=== PATIENT | male | born 1995 | race Hispanic/Latino ===

== ENCOUNTER 2018-01-25 15:57 | Emergency (ER) | payer SELFPAY ==
--- NOTE | 2018-01-25 16:37 | ERPHSYRPT ---
- History of Present Illness Time Seen by Provider: 01/25/18 16:26 Source: patient, family Exam Limitations: no limitations Patient Subjective Stated Complaint: patient is from [place] up here with his father states he has history of sickle cell anemia and gallstones and is experiencing extreme nausea nd pain in his back and sides Triage Nursing Assessment: pt alert and orientedx3, able to ambulate by self, gait is steady, skin WNL, lung sounds clear, pupils perrla2, bowel sounds present x4. pusle sequal bialteral radius. no deformities or areas of injury noted on back Physician History: The patient is a 22-year-old male with sickle cell disease, traveling with his father who is an over the road welding equipment repairer from [place], complains of possible sickle cell crisis for episode for the last 4 days. He complains of low back pain and central chest pain. The pt has been vomiting for 4 days. 4 days ago they stopped while driving the truck in [place] and was seen in the emergency room. He was hydrated and given [place] 5 mg for the pain. He states it is not working. He would like more pain medicine. His father has a load for his truck tomorrow and that he wants to go home to [place]. His past medical history is significant for sickle cell disease and gallstones. His last sickle cell episode was 4 months ago. Timing/Duration: day(s) (4) Severity: severe Modifying Factors: Improves With: ibuprofen, other (norco) Associated Symptoms: vomiting, chest pain Allergies/Adverse Reactions: No Known Drug Allergies Allergy (Verified 01/25/18 16:06) Hx Tetanus, Diphtheria Vaccination/Date Given: Yes Hx Influenza Vaccination/Date Given: Yes Hx Pneumococcal Vaccination/Date Given: No Immunizations Up to Date: Yes - Review of Systems Constitutional: No Fever, No Chills Eyes: No Symptoms Ears, Nose, & Throat: No Symptoms Respiratory: No Cough, No Dyspnea Cardiac: Chest Pain, No Edema, No Syncope Abdominal/Gastrointestinal: Nausea, Vomiting Genitourinary Symptoms: No Dysuria Musculoskeletal: Back Pain Skin: No Rash Neurological: No Dizziness, No Focal Weakness, No Sensory Changes Psychological: No Symptoms Endocrine: No Symptoms Hematologic/Lymphatic: No Symptoms Immunological/Allergic: No Symptoms All Other Systems: Reviewed and Negative - Past Medical History Pertinent Past Medical History: Yes Other Medical History: sickle cell SS, gall stones - Past Surgical History Past Surgical History: Yes - Social History Smoking Status: Current every day smoker Drug Use: none - Nursing Vital Signs Nursing Vital Signs: Initial Vital Signs Temperature 98.7 F 01/25/18 15:59 Pulse Rate 106 H 01/25/18 15:59 Respiratory Rate 18 01/25/18 15:59 Blood Pressure 143/73 01/25/18 15:59 O2 Sat by Pulse Oximetry 98 01/25/18 15:59 Pain Scale Pain Intensity [] 7 Pain Intensity 2 - Physical Exam General Appearance: moderate distress, thin Eye Exam: PERRL/EOMI, eyes nml inspection Ears, Nose, Throat Exam: normal ENT inspection, TMs normal, pharynx normal, moist mucous membranes Neck Exam: normal inspection, non-tender, supple, full range of motion Respiratory Exam: normal breath sounds, chest tenderness, lungs clear, No respiratory distress Cardiovascular Exam: regular rate/rhythm, normal peripheral pulses, murmur Gastrointestinal/Abdomen Exam: soft, normal bowel sounds, No tenderness, No mass Rectal Exam: not done Back Exam: normal inspection, normal range of motion, No CVA tenderness, No vertebral tenderness Extremity Exam: normal inspection, normal range of motion, pelvis stable Neurologic Exam: alert, oriented x 3, cooperative, normal mood/affect, nml cerebellar function, nml station & gait, sensation nml, No motor deficits Skin Exam: normal color, warm, dry, No rash Lymphatic Exam: No adenopathy SpO2 Interpretation: normal SpO2: 98 Oxygen Delivery: Room Air - Course EKG Interpreted by Me: RATE, Sinus Rhythm, NORMAL AXIS, NORMAL INTERVALS, NORMAL QRS, NORMAL ST-T - Radiology Exams Chest X-ray Interpretation: Interpreted by me, Negative - CT Exams Abdomen/Pelvis CT Interpretation: Tele-radiologist Report, Other (multiple gallstones; calcified spleen per Dr Ellison.) Ordered Tests: Active Orders 24 hr Category Date Time Status Clean Catch Urine Specimen STAT Care 01/25/18 16:42 Active EKG-ER Only STAT Care 01/25/18 16:42 Active IV Insertion STAT Care 01/25/18 16:42 Active ABDOMEN AND PELVIS W/0 CONTRAS [CT] Stat Exams 01/25/18 18:01 Taken CHEST 2 VIEWS (PA AND LAT) Stat Exams 01/25/18 16:42 Taken AMYLASE Stat Lab 01/25/18 17:21 Completed CBC W DIFF Stat Lab 01/25/18 17:21 Completed CMP Stat Lab 01/25/18 17:21 Completed LIPASE Stat Lab 01/25/18 17:21 Completed Lactic Acid Stat Lab 01/25/18 16:55 Completed Manual Differential NC Stat Lab 01/25/18 17:21 Completed TROPONIN Q3H Lab 01/25/18 17:21 Completed TROPONIN Q3H Lab 01/25/18 19:45 Ordered TROPONIN Q3H Lab 01/25/18 22:45 Ordered TROPONIN Q3H Lab 01/26/18 01:45 Ordered TROPONIN Q3H Lab 01/26/18 04:45 Ordered UA W/RFX UR CULTURE Stat Lab 01/25/18 17:21 Completed Urine Triage Profile Stat Lab 01/25/18 17:21 Completed Medication Summary Generic Name Dose Route Start Last Admin Trade Name Freq PRN Reason Stop Dose Admin Sodium Chloride 1,000 mls @ 100 mls/hr 01/25/18 18:15 01/25/18 18:10 Sodium Chloride 0.9% 1000 Ml IV 02/24/18 18:14 100 mls/hr .Q10H DONALD Administration Discontinued Medications Generic Name Dose Route Start Last Admin Trade Name Freq PRN Reason Stop Dose Admin Diphenhydramine HCl 50 mg 01/25/18 18:36 01/25/18 18:38 Benadryl 50 Mg/Ml IV 01/25/18 18:37 50 mg STAT ONE Administration Diphenhydramine HCl Confirm 01/25/18 18:36 Benadryl 50 Mg/Ml Administered 01/25/18 18:37 Dose 50 mg .ROUTE .STK-MED ONE Sodium Chloride 1,000 mls @ 999 mls/hr 01/25/18 16:42 01/25/18 17:50 Sodium Chloride 0.9% 1000 Ml IV 01/25/18 17:42 999 mls/hr .Q1H1M STA Infusion Sodium Chloride Confirm 01/25/18 16:49 Sodium Chloride 0.9% 1000 Ml Administered 01/25/18 16:50 Dose 1,000 mls @ ud .ROUTE .STK-MED ONE Ceftriaxone Sodium/Dextrose 1 g in 50 mls @ 100 mls/hr 01/25/18 18:03 18:10 Rocephin 1 Gm-D5w 50 Ml Bag IV 01/25/18 18:32 100 ml/hr STAT STA 100 mls/hr Administration Ceftriaxone Sodium/Dextrose Confirm 01/25/18 18:05 Rocephin 1 Gm-D5w 50 Ml Bag Administered 01/25/18 18:06 Dose 1 g in 50 mls @ ud IV .STK-MED ONE Morphine Sulfate 8 mg 01/25/18 16:42 01/25/18 16:53 Morphine Sulfate 10 Mg/Ml IV 01/25/18 16:43 8 mg STAT ONE Administration Morphine Sulfate Confirm 01/25/18 16:49 Morphine Sulfate 10 Mg/Ml Administered 01/25/18 16:50 Dose 10 mg .ROUTE .STK-MED ONE Ondansetron HCl 4 mg 01/25/18 16:42 01/25/18 16:53 Zofran 4 Mg/2 Ml Vial IV 01/25/18 16:43 4 mg STAT ONE Administration Ondansetron HCl Confirm 01/25/18 16:49 Zofran 4 Mg/2 Ml Vial Administered 01/25/18 16:50 Dose 4 mg .ROUTE .STK-MED ONE Lab/Rad Data: Laboratory Result Diagrams 01/25/18 17:21 01/25/18 17:21 Laboratory Results 01/25/18 01/25/18 01/25/18 Range/Units 17:21 17:21 17:21 WBC (4.0-10.5) K/mm3 Corrected WBC (auto) K/mm3 RBC (4.1-5.6) M/mm3 Hgb (12.5-18.0) gm/dl Hct (42-50) % MCV (78-100) fl MCH (26-32) pg MCHC (32-36) g/dl RDW (11.5-14.0) % Plt Count (150-450) K/mm3 MPV (6-9.5) fl Segmented Neutrophils (36.-66.) % Band Neutrophils (0.0-2.0) % Lymphocytes (Manual) (24-44) % Monocytes (Manual) (0.0-12.0) % Basophils (Manual) (0.0-1.0) % Nucleated RBCs % Platelet Estimate (NORMAL) RBC Morphology Polychromasia Sickle Cells Sodium (137-145) mmol/L Potassium (3.5-5.1) mmol/L Chloride (98-107) mmol/L Carbon Dioxide (22-30) mmol/L Anion Gap (5-15) MEQ/L BUN (9-20) mg/dL Creatinine (0.66-1.25) mg/dL Estimated GFR ML/MIN Glucose (74-106) mg/dL Lactic Acid (0.4-2.0) Calcium (8.4-10.2) mg/dL Total Bilirubin (0.2-1.3) mg/dL AST (17-59) U/L ALT (0-50) U/L Alkaline Phosphatase (38-126) U/L Troponin I < 0.012 (0.000-0.034) ng/mL Serum Total Protein (6.3-8.2) g/dL Albumin (3.5-5.0) g/dL Amylase (30-110) U/L Lipase (23-300) U/L Ur Collection Type CCMS Urine Color DARK YELLOW (YELLOW) Urine Appearance CLEAR (CLEAR) Urine pH 6.0 (5-6) Ur Specific [place] 1.010 (1.005-1.025) Urine Protein NEGATIVE (Negative) Urine Ketones NEGATIVE (NEGATIVE) Urine Blood NEGATIVE (0-5) Sanjay/ul Urine Nitrite NEGATIVE (NEGATIVE) Urine Bilirubin NEGATIVE (NEGATIVE) Urine Urobilinogen 4 (0-1) mg/dL Ur Leukocyte Esterase NEGATIVE (NEGATIVE) Urine Culture Reflexed NO (NO) Urine Glucose NEGATIVE (NEGATIVE) mg/dL Urine Opiates Level POSITIVE (NEGATIVE) Ur Methadone NEGATIVE (NEGATIVE) Urine Barbiturates NEGATIVE (NEGATIVE) Ur Phencyclidine (PCP) NEGATIVE (NEGATIVE) Urine Amphetamine NEGATIVE (NEGATIVE) U Benzodiazepine Level NEGATIVE (NEGATIVE) Urine Cocaine NEGATIVE (NEGATIVE) Urine Marijuana (THC) NEGATIVE (NEGATIVE) Specimen Received 01-25-18 [id number] 01/25/18 01/25/18 01/25/18 Range/Units 17:21 17:21 16:55 WBC 13.4 H (4.0-10.5) K/mm3 Corrected WBC (auto) 10.1 K/mm3 RBC 2.56 L (4.1-5.6) M/mm3 Hgb 8.3 L (12.5-18.0) gm/dl Hct 23.0 L (42-50) % MCV 89.8 (78-100) fl MCH 32.4 H (26-32) pg MCHC 36.1 H (32-36) g/dl RDW 21.9 H (11.5-14.0) % Plt Count 440 (150-450) K/mm3 MPV 10.1 H (6-9.5) fl Segmented Neutrophils 51 (36.-66.) % Band Neutrophils 1 (0.0-2.0) % Lymphocytes (Manual) 38 (24-44) % Monocytes (Manual) 8 (0.0-12.0) % Basophils (Manual) 2 H (0.0-1.0) % Nucleated RBCs 33 % Platelet Estimate NORMAL (NORMAL) RBC Morphology ABNORMAL Polychromasia 1+ Sickle Cells 2+ Sodium 146 H (137-145) mmol/L Potassium 4.1 (3.5-5.1) mmol/L Chloride 110 H (98-107) mmol/L Carbon Dioxide 25 (22-30) mmol/L Anion Gap 15.3 H (5-15) MEQ/L BUN 8 L (9-20) mg/dL Creatinine 0.84 (0.66-1.25) mg/dL Estimated GFR > 60.0 ML/MIN Glucose 90 (74-106) mg/dL Lactic Acid 0.9 (0.4-2.0) Calcium 9.5 (8.4-10.2) mg/dL Total Bilirubin 5.00 H (0.2-1.3) mg/dL AST 44 (17-59) U/L ALT 29 (0-50) U/L Alkaline Phosphatase 77 (38-126) U/L Troponin I (0.000-0.034) ng/mL Serum Total Protein 7.7 (6.3-8.2) g/dL Albumin 4.9 (3.5-5.0) g/dL Amylase 104 (30-110) U/L Lipase 263 (23-300) U/L Ur Collection Type Urine Color (YELLOW) Urine Appearance (CLEAR) Urine pH (5-6) Ur Specific [place] (1.005-1.025) Urine Protein (Negative) Urine Ketones (NEGATIVE) Urine Blood (0-5) Sanjay/ul Urine Nitrite (NEGATIVE) Urine Bilirubin (NEGATIVE) Urine Urobilinogen (0-1) mg/dL Ur Leukocyte Esterase (NEGATIVE) Urine Culture Reflexed (NO) Urine Glucose (NEGATIVE) mg/dL Urine Opiates Level (NEGATIVE) Ur Methadone (NEGATIVE) Urine Barbiturates (NEGATIVE) Ur Phencyclidine (PCP) (NEGATIVE) Urine Amphetamine (NEGATIVE) U Benzodiazepine Level (NEGATIVE) Urine Cocaine (NEGATIVE) Urine Marijuana (THC) (NEGATIVE) Specimen Received - Progress Progress: improved Progress Note: 01/25/18 18:40 Pt given rocephin 1 gm IV and began to itch. Pt given benadryl 25 mg IV. Counseled pt/family regarding: lab results, diagnosis, need for follow-up, rad results - Departure Time of Disposition: 19:05 Departure Disposition: Home Clinical Impression: Sickle cell anemia with pain, Nausea, Gallstones Condition: Stable Critical Care Time: No Referrals: DOCTOR,NO FAMILY [Primary Care Provider] - Additional Instructions: You have sickle cell anemia with pain. He also had nausea and gallstones. You were given morphine 8 mg, Zofran 4 mg, and fluids by IV in the ER. Take Zofran 4 mg ODT every 6 hours as needed for nausea. Takes [place] one tablet every 4-6 hours as needed for pain. When you arrive home in [place], please be evaluated by a surgeon for the gallstones.
[2018-01-25] MEDS ORDERED: Sodium Chloride 0.9% 1000 ML 1,000 ML ONE ×2 (16:49→18:05)
[2018-01-25] MEDS ORDERED: MORPHINE SULFATE 10 MG/ML ONE (16:49)
[2018-01-25] MEDS ORDERED: Zofran 4 MG/2 ML VIAL ONE (16:49)
[2018-01-25] MEDS: Sodium Chloride 0.9% 1000 ML 1,000 ML IV STA (16:52)
[2018-01-25] MEDS: MORPHINE SULFATE 10 MG/ML IV ONE (16:53)
[2018-01-25] MEDS: Zofran 4 MG/2 ML VIAL IV ONE (16:53)
[2018-01-25 17:22] LABS: Hemoglobin 8.3 gm/dl (12.5-18.0); Mean Cell Volume 89.8 fl (78-100); Mean Corpuscular Hemoglobin 32.4 pg (26-32); Mean Corpuscular Hgb Concent. 36.1 g/dl (32-36); Mean Platelet Volume 10.1 fl (6-9.5); Platelet Count 440 K/mm3 (150-450); Red Blood Count 2.56 M/mm3 (4.1-5.6); Red Cell Distribution Width 21.9 % (11.5-14.0); White Blood Count 13.4 K/mm3 (4.0-10.5)
[2018-01-25 17:36] LABS: Amphetamine,Urine NEGATIVE (NEGATIVE); Barbiturate,Urine NEGATIVE (NEGATIVE); Benzodiazepine,Urine NEGATIVE (NEGATIVE); Cocaine,Urine NEGATIVE (NEGATIVE); Methadone,Urine NEGATIVE (NEGATIVE); PCP,Urine NEGATIVE (NEGATIVE); THC,Urine NEGATIVE (NEGATIVE)
[2018-01-25 17:40] LABS: ALBUMIN 4.9 g/dL (3.5-5.0); ALKALINE PHOSPHATASE 77 U/L (38-126); AMYLASE 104 U/L (30-110); ANION GAP 15.3 MEQ/L (5-15); Appearance CLEAR (CLEAR); BLOOD UREA NITROGEN 8 mg/dL (9-20); Bilirubin NEGATIVE (NEGATIVE); Blood NEGATIVE Ery/ul (0-5); CHLORIDE 110 mmol/L (98-107); Calcium 9.5 mg/dL (8.4-10.2); Carbon Dioxide 25 mmol/L (22-30); Creatinine 1 0.84 mg/dL (0.66-1.25); Glucose 90 mg/dL (74-106); Glucose NEGATIVE (NEGATIVE); Ketones NEGATIVE (NEGATIVE); LIPASE 263 U/L (23-300); Leukocyte Esterase NEGATIVE (NEGATIVE); Nitrite NEGATIVE (NEGATIVE); Potassium 4.1 mmol/L (3.5-5.1); Protein,Urine Dip NEGATIVE (Negative); SGOT/AST 44 U/L (17-59); SGPT/ALT 29 U/L (0-50); SODIUM 146 mmol/L (137-145); Total Protein 7.7 g/dL (6.3-8.2); Urobilinogen 4 mg/dL (0-1)
[2018-01-25 17:42] LABS: Opiate,Urine POSITIVE (NEGATIVE)
[2018-01-25] MEDS ORDERED: ROCEPHIN 1 Gm-D5w 50 ml Bag** 1 G/50 ML IVPB IV ONE (18:05)
[2018-01-25] MEDS: ROCEPHIN 1 Gm-D5w 50 ml Bag** 1 G/50 ML IVPB IV STA (18:10)
[2018-01-25] MEDS: Sodium Chloride 0.9% 1000 ML 1,000 ML IV SCH (18:10)
[2018-01-25 18:13] VITALS: BP 108/63; O2SAT 98
[2018-01-25 18:24] LABS: BAND 1 % (0.0-2.0); Basophil 2 % (0.0-1.0); Corrected WBC 10.1 K/mm3; Lymphocytes 38 % (24-44); Monocyte 8 % (0.0-12.0); Neutrophils 51 % (36.-66.); Nucleated Red Blood Cell 33 %; Platelet Estimate NORMAL (NORMAL); Polychromasia 1+; Sickle Cells 2+; Total Cells Counted 100
[2018-01-25] MEDS ORDERED: BENADRYL 50 MG/ML ONE (18:36)
[2018-01-25] MEDS: BENADRYL 50 MG/ML IV ONE (18:38)
[2018-01-25 18:43] VITALS: PULSE 84
--- NOTE | 2018-01-26 08:55 | XRAY ---
Indication: Abdominal, chest, and back pain. Sickle cell crisis. Multiple contiguous axial images obtained through the abdomen and pelvis without contrast as ordered. Comparison: None Lung bases demonstrates mild bibasilar fibrosis/scarring. No infiltrate or effusion. Heart is not enlarged. Noncontrasted stomach and bowel loops appear nonobstructed. Moderate diffuse scattered colonic fecal debris throughout. Normal appendix, best seen on coronal reformatted images. No free fluid/air. Small calcified spleen. Multiple large gallstones, largest 3.3 cm. No abnormal biliary distention. Remaining liver, pancreas, adrenal glands, kidneys, ureters, bladder, and aorta appear unremarkable for noncontrast exam. Osseous structures intact with mild multilevel lumbar Schmorl nodes. Also multilevel vertebral hemangiomas, largest L4. Impression: 1. Large gallstones better evaluated with ultrasound if clinically warranted. 2. Fecal stasis without obstruction. 3. Incidental small calcified spleen, multilevel Schmorl nodes, and multilevel vertebral hemangiomas. CTDI 8.07
--- NOTE | 2018-01-26 08:55 | XRAY ---
Indication: Chest pain. Comparison: None PA/lateral chest demonstrates normal heart, lungs, and bony thorax.
[2018-01-26 10:49] LABS: Slide Review 1 YES
== END 2018-01-25 19:18 | disposition home or self-care (01) ==
LOC: ED 15:57
DX: D57.1 Sickle-cell disease without crisis (principal); R52 Pain, unspecified; R11.0 Nausea; K80.80 Other cholelithiasis without obstruction; Z72.0 Tobacco use
CPT/HCPCS: 36000; 36415; 71046; 74176; 80053; 80307; 81002; 82150; 83605; 83690; 84484; 85025; 93005; 96360; 96361; 96365; 96374; 96375; 99285; J0696; J1200; J2270; J2405